=== PATIENT | female | born 1930 | race Caucasian/White ===

== ENCOUNTER 2019-07-04 14:21 | Inpatient (IN) | payer MEDICARE ==
[~2019-07-04] VITALS: Ht 154.9 cm; Wt 81.7 kg
[2019-07-04] VITALS (7 sets, daily range): BP systolic 104–214; BP diastolic 53–115
[~2019-07-04 14:21] MED LIST: CIPROFLOXACIN250 M2 PO; DILTIAZEM PO; DIOVAN320 MG PO; LASIX 20 MG TAB20 MG PO; PLAVIX 75 MG TA75 MG PO; STOOL SOFTENER100 MG PO; SYNTHROID125 MC1 PO; VICODIN ES PO; [UNRECOGNIZED DRUG - OTHER] PO
[2019-07-04 14:58] LABS: HEMOGLOBIN 15.4 gm/dL (12.0-15.0); MCH 30.1 pg (26.0-34.0); MCHC 33.4 g/dL (28.0-37.0); MCV 89.9 fL (80.0-100.0); MPV 8.8 fl. (7.2-11.1); NUCLEATED RBCS 0 /100WBC; PLATELET COUNT* 311 thou/uL (150-400); RBC 5.11 mil/uL (4.20-5.00); RDW-CV 13.9 % (10.5-14.5); WBC 29.7 thou/uL (4.0-11.0)
[2019-07-04 15:07] LABS: CALCIUM 9.3 mg/dL (8.5-10.1); CREATININE 1.1 mg/dL (0.6-1.3); POTASSIUM 3.8 mmol/L (3.5-5.1)
[2019-07-04 15:08] LABS: APTT 23.2 Seconds (25.0-31.3)
[2019-07-04 15:22] LABS: ALBUMIN 4.1 g/dL (3.4-5.0); MAGNESIUM 2.4 mg/dL (1.8-2.4); TOTAL BILIRUBIN 0.5 mg/dL (<0.1-1.0); TOTAL PROTEIN 7.4 g/dL (6.4-8.2)
[2019-07-04 15:41] LABS: ABSOLUTE BASOPHILS 0.3 thou/uL (0.0-0.2); ABSOLUTE EOSINOPHILS 0.6 thou/uL (0.0-0.7); ABSOLUTE LYMPHOCYTES 21.1 thou/uL (0.8-5.3); ABSOLUTE MONOCYTES 1.5 thou/uL (0.0-1.2); ABSOLUTE NEUTROPHILS 6.2 thou/uL (1.6-8.1); ATYPICAL LYMPHS 24 %; PLATELET ESTIMATE ADEQUATE
[2019-07-05] VITALS (23 sets, daily range): BP systolic 108–134; BP diastolic 45–64
[2019-07-05 04:36] LABS: HEMATOCRIT 35.9 % (37.0-47.0); MCH 30.7 pg (26.0-34.0); MCHC 34.5 g/dL (28.0-37.0); MCV 88.9 fL (80.0-100.0); MPV 8.9 fl. (7.2-11.1); RBC 4.04 mil/uL (4.20-5.00); RDW-CV 13.7 % (10.5-14.5)
[2019-07-05 04:42] LABS: HEMOGLOBIN 12.4 gm/dL (12.0-15.0); WBC 11.4 thou/uL (4.0-11.0)
[2019-07-05 04:49] LABS: ALBUMIN 2.9 g/dL (3.4-5.0); CALCIUM 8.5 mg/dL (8.5-10.1); CREATININE 1.1 mg/dL (0.6-1.3); MAGNESIUM 2.3 mg/dL (1.8-2.4); POTASSIUM 3.3 mmol/L (3.5-5.1); TOTAL BILIRUBIN 0.6 mg/dL (<0.1-1.0); TOTAL PROTEIN 5.4 g/dL (6.4-8.2)
[2019-07-05 04:57] LABS: BE 4.8 mmol/L (-2 to +3); PCO2 38.1 mmHg (35.0-45.0); PO2 96.3 mmHg (75.0-100.0); pH 7.489 (7.340-7.450)
[2019-07-05 05:00] LABS: TROPONIN-I LEVEL 6.02 ng/mL (<0.06)
--- NOTE | 2019-07-05 14:45 | EKG ---
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 : 1930 Requested By: Erasmo Wells Order Number: [id number] MD: Ismael Manley Measurements Intervals [place] Rate: 133 P: 72 MN: 154 QRS: -1 QRSD: 90 T: 37 QT: 287 QTc: 427 Interpretive Statements Sinus tachycardia Anterior infarct, old ST depression, consider ischemia Baseline wander in lead(s) II,III,aVL,aVF,V6 Compared to ECG 12/30/2009 10:02:10 Myocardial infarct finding now present ST (T wave) deviation now present Sinus rhythm no longer present Incomplete right bundle-branch block no longer present Electronically Signed On 07-05-2019 14:43:40 CDT by Ismael Manley [email or web address] <ELECTRONICALLY SIGNED> By: Ismael Manley MD, [facility] 07/05/19 1443 1430 1430 Ismael Manley MD, [facility] /EPI
[2019-07-06] VITALS (36 sets, daily range): BP systolic 93–134; BP diastolic 45–63
[2019-07-06 05:30] LABS: HEMATOCRIT 34.8 % (37.0-47.0); HEMOGLOBIN 11.9 gm/dL (12.0-15.0); MCH 30.4 pg (26.0-34.0); MCHC 34.1 g/dL (28.0-37.0); MCV 89.2 fL (80.0-100.0); MPV 8.8 fl. (7.2-11.1); RBC 3.9 mil/uL (4.20-5.00); RDW-CV 13.8 % (10.5-14.5); WBC 9.9 thou/uL (4.0-11.0)
[2019-07-06 05:44] LABS: ALBUMIN 2.6 g/dL (3.4-5.0); ALKALINE PHOSPHATASE 102 U/L (46-116); ANION GAP 5 mmol/L (7-16); BUN 15 mg/dL (7-18); CALCIUM 8.5 mg/dL (8.5-10.1); CHLORIDE 105 mmol/L (98-107); CHOLESTEROL 171 mg/dL (<200); CO2 29 mmol/L (21-32); CREATININE 1.1 mg/dL (0.6-1.3); GLUCOSE 95 mg/dL (70-99); HDL CHOLESTEROL 56 mg/dL (>40); LDL CHOLESTEROL 101 mg/dL (<100); MAGNESIUM 2.1 mg/dL (1.8-2.4); SERUM ASSESSMENT CLEAR; SGOT 31 U/L (15-37); SGPT 14 U/L (30-65); SODIUM 139 mmol/L (136-145); TC:HDL 3.1 Ratio (Not establshd); TOTAL BILIRUBIN 0.6 mg/dL (<0.1-1.0); TOTAL PROTEIN 5.2 g/dL (6.4-8.2); TRIGLYCERIDE 72 mg/dL (<150); VLDL 14 mg/dL (<40)
--- NOTE | 2019-07-06 10:45 | EKG ---
[place] [address] ELECTROCARDIOGRAM REPORT Name: KATELIN VENEGAS Room: [address] ADM IN M.R.#: [id number] Admission: 07/04/19 Attend Phys: Jose Carlos Becerra Discharge: Date of : [birth year] Date of Service: 07/06/19 0303 Report #: [id number] THIS REPORT FOR: //name// [facility] Test Date: 2019-07-06 Test Time: 03:03:38 Pat Name: KATELIN VENEGAS Department: Room: [address] Gender: F [employer] Former: RB : 1930 Requested By: Jose Carlos Becerra Order Number: [id number] Reading MD: Rj Eugene Measurements Intervals [place] Rate: 80 P: 51 ND: 157 QRS: -1 QRSD: 82 T: 150 QT: 387 QTc: 447 Interpretive Statements Sinus rhythm Probable left atrial enlargement Probable anteroseptal infarct, recent Lateral leads are also involved Baseline wander in lead(s) V5,V6 Compared to ECG 07/04/2019 14:30:44 Sinus tachycardia no longer present Myocardial infarct finding still present Electronically Signed On 07-06-2019 10:43:46 CDT by Rj Eugene [email or web address] <ELECTRONICALLY SIGNED> By: Rj Eugene MD, [facility] 07/06/19 1043 2 2 Rj Eugene MD, [facility] /EPI
[2019-07-06 12:09] LABS: PCO2 VENOUS 38.2 mmHg (41.0-51.0); PO2 VENOUS 33.4 mmHg (35.0-45.0)
[2019-07-06 12:15] LABS: pH 7.478 (7.340-7.450)
[2019-07-06 12:16] LABS: BE 2.2 mmol/L (-2 to +3)
[2019-07-06 12:31] LABS: PO2 54.9 mmHg (75.0-100.0)
--- NOTE | 2019-07-06 14:58 | EKG ---
[place] [address] ELECTROCARDIOGRAM REPORT Name: KATELIN VENEGAS Room: [address] ADM IN M.R.#: [id number] Admission: 07/04/19 Attend Phys: Jose Carlos Becerra Discharge: Date of : [birth year] Date of Service: 07/06/19 1311 Report #: [id number] THIS REPORT FOR: //name// 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1930 Requested By: Rj Eugene Order Number: [id number] Reading MD: Rj Eugene Measurements Intervals [place] Rate: 85 P: 60 NC: 151 QRS: 17 QRSD: 121 T: 138 QT: 386 QTc: 459 Interpretive Statements Sinus rhythm Anterior Q waves, possibly due to old anterior myocardia infarction LVH w/ repol abnormalities, possible ischemia ST elevation, consider old anterior infarction Compared to ECG 07/06/2019 03:03:38 Left ventricular hypertrophy now present Myocardial infarct finding still present Electronically Signed On 07-06-2019 14:56:37 CDT by Rj Eugene [email or web address] <ELECTRONICALLY SIGNED> By: Rj Eugene MD, [facility] 07/06/19 1456 1311 1311 Rj Eugene MD, [facility] /EPI
--- NOTE | 2019-07-06 16:22 | CARD ---
[address] [address] CARDIAC CATH REPORT Name: KATELIN VENEGAS Abdirahman Room: [address] IN [facility]#: [id number] Admission: 07/04/19 Attend Phys: Melquiades Yancey Discharge: Date of : [birth year] Report #: [id number] THIS REPORT FOR: //name// cc: HANNA - No family physician/PCP FAM - No family physician/PCP ~ APPROVED REPORT Study performed: 07/06/2019 10:33:16 Patient Details Patient Status: In-Patient Room #: The patient is a 88 year-old female Event Personnel Dickson Ashby RTR Monitor, Hasmukh Peralta RN RN, Viola Galloway RN RN, Bell Riley RTR AndreaubValorie David Veneer Glue Spreader Procedures Performed right and left heart catheterizaion and stent placement in the rcaRight and Left Heart Cath w/or w/o Coronarie [id number] [facility] Place w/wo Plasty Single RCA [id number] Hemostasis w/ Angioseal Hemostasis with Manual pressure Indication Abnormal ECG, Non-STEMI , Dyspnea, Valvular heart disease Risk Factors Coronary Artery Disease Previous Procedures/Diagnoses Previous PCI Admission/Lab Medications/Medications given during procedure Glycoprotein IllbIlla Inhibitors, Heparin Unfract., Midazolam (Versed) IV 1 mg, Heparin IA 6000 units, Aggrastat Unknown 8.4 ml, Fentanyl IV 25 mcg, Plavix PO 600 mg Procedure Narrative The patient was brought electively to the Cardiac Catheterization Laboratory and was prepped and draped in a sterile manner. The right femoral was infiltrated with 2% Lidocaine subcutaneous anesthesia. A Right Heart Catheterization was performed with a 7 Fr. [place] catheter and pressure were recorded. Cardiac outputs were obtained by the Thermal Dilution method. A 7Fr X 11cm [place] [address] CARDIAC CATH REPORT Name: KATELIN VENEGAS Room: [address] IN [facility].#: [id number] Admission: 07/04/19 Attend Phys: Melquiades Yancey Discharge: Date of : [birth year] Report #: [id number] into the right femoral artery and vein. Coronary angiography was performed using coronary diagnostic catheters. The right coronary system was accessed and visualized with a Diagnostic JR4 6Fr catheter. The left coronary system was accessed and visualized with a Diagnostic JL4 6Fr catheter. The left ventricle was accessed and visualized with a Diagnostic Angled Pigtail 6Fr catheter. Left ventricular/Aortic Valve gradient assessed via joel catheter with simultaneous pressures. Left ventriculogram was performed in GARDNER projection. Closure device was deployed with a Fr AngiosealAngioseal 6Fr. The patient tolerated the procedure well and there were no complications associated with the procedure. There was no hematoma. 7 kinyarwanda sheath placed in the right femoral vein. Hemostasis achieved at the end of the procedure by bessy pressure. Intraoperative Conscious Sedation Sedation start time: 1137 Case end Time: 1258 Fentanyl 50 mcg Versed 2 mg Fluoro Time: 11.7 minutes Dose: DAP 045756 cGycm2 1972.46 mGy Contrast Type and Amount: Visipaque 250 ml Coronary Angiography The patient's coronary anatomy is co- dominant. Diagnostic Cath Left Main 0% stenosis LAD ostial 40% stenosis noted prior to a stent in the proximal lad that had 0% stenosis. 60% stenosis noted in the mid lad after the first diagonal branch, and stent in the mid lad after the second diagonal branch had 0% stenosis. Distal lad had a 90% stenosis before a 3rd stent that had 0% stenosis. Circumflex 30% mid stenosis noted Right Coronary Stent in the mid rca had a 90% stenosis at the proximal edge of the stent, and a 99% stenosis noted at the distal edge of the stent Left Ventriculography The left ventricular ejection fraction is estimated to be 30-35%. Left ventricular wall motion abnormalities are present. There is no mitral insufficiency. Apical akinsis noted Hemodynamics The right atrial mean pressure is 4 mmHg. The right ventricular pressure is 55/8 mmHg. The pulmonary artery pressure is 54/30 [place] [address] CARDIAC CATH REPORT Name: YONI VENEGASDiana Gary Room: [address] IN [facility]#: [id number] Admission: 07/04/19 Attend Phys: Melquiades Yancey Discharge: Date of : [birth year] Report #: [id number] with a mean of mmHg. The mean pulmonary capillary wedge pressure is 15 mmHg. The aortic pressure is 100/60 mmHg with a mean of mmHg. The left ventricular pressure is 200/18 mmHg with a mean of mmHg. The left ventricular end diastolic pressure is 18 mmHg. Pullback from the left ventricle to the aorta revealed a 100 mm gradient across the aortic valve. Arterial saturation is 91 %. The cardiac output using thermo method is 4.77 L/min. The peak gradient across the aortic valve is 100 mmHg. The aortic valve area is 0.4-0.5 cm2. PCI Technique Lesion Anticoagulation was achieved with Heparin. bolud of iv aggrastat given Percutaneous coronary intervention was performed on the mid right coronary arterydistal right coronary artery. The lesion stenosis prior to intervention was 99% with TAE 3 flow. A 6F JR 4.0 Guide Catheter was used to engage the Right ostium. A BMW 190cm Interventional Guidewire was used to cross the lesion. BALLOON DILATION A Balloon catheter Mini Trek RX 2.0 X 8 was inserted and inflated up to 10.00atm for 17seconds. Repeat angiography revealed the following post-dilatation results: 70% stenosis. Additional Inflation: 12.00atm for 11seconds. Additional Inflation: 14.00atm for 18seconds. STENT DEPLOYMENT A drug-eluting stent Syd RX Stent 2.67F95dj was inserted and inflated up to 14.00atm for 10seconds. Repeat angiography revealed the following post-stent deployment results: 30% stenosis. Additional Inflation: 12.00atm for 13seconds. Remi wire was needed to advance the stent using a BMW wire. A second drug eluting stent which was 2.5 x 34 mm was used proximal to the first stent with minimal overlap between this stent and the more distal stent. POST STENT DEPLOYMENT BALLOON DILATION A Balloon catheter 2.5 x 34 mm balloon from the 2nd stent was inserted and inflated up to 20atm for 15seconds. Repeat angiography revealed the following post-dilatation results: 0% stenosis. Final angiography reveals 0 % stenosis with TAE 3 flow. PCI Technique Lesion 2 Percutaneous Coronary Intervention was performed on the mid right coronary artery. A 6F JR 4.0 Guide Catheter was used to engage the Right ostium. A BMW 190cm Interventional Guidewire was used to cross the lesion. Stent Deployment [facility] [address] [place] [address] CARDIAC CATH REPORT Name: KATELIN VENEGAS Room: [address] ADM IN .R.#: [id number] Admission: 07/04/19 Attend Phys: Melquiades Yancey Discharge: Date of : [birth year] Report #: [id number] A drug-eluting stent Syd RX Stent 2.5X34mm was inserted and inflated up to 10.00atm for 13seconds. Additional Inflation: 10.00atm for 9seconds. Additional Inflation: 14.00atm for 16seconds. Conclusion 1. No significant stenosis noted of stents in the proximal, mid, and distal lad, although there was a 90% stenosis noted in the distal lad between the stents in the mid lad and distal lad 2. Stent in the mid rca had a 90% stenosis of the proximal edge of the stent, and a 99% stenosis noted in the distal edge of the stent 3. LVEF 30-35% 4. Severe aortic stenosis with a calculated valve area of 0.4 cm squared 5. successful placment of 2 drug eluting stents in the mid rca Recommendations Recommend referral for TAVR Medications Administered Clopidogrel <ELECTRONICALLY SIGNED> By: Rj Eugene MD, [facility] 07/06/19 1620 162 162Dasaji Eugene MD, FACC /INF
[2019-07-07] VITALS (35 sets, daily range): BP systolic 89–138; BP diastolic 47–87
[2019-07-07 04:28] LABS: HEMATOCRIT 36.7 % (37.0-47.0); HEMOGLOBIN 12.6 gm/dL (12.0-15.0); MCH 30.7 pg (26.0-34.0); MCHC 34.4 g/dL (28.0-37.0); MCV 89.3 fL (80.0-100.0); MPV 8.6 fl. (7.2-11.1); RBC 4.11 mil/uL (4.20-5.00); RDW-CV 13.8 % (10.5-14.5)
[2019-07-07 04:43] LABS: PREALBUMIN 14.9 mg/dL (18.0-35.7)
[2019-07-07 04:56] LABS: ALBUMIN 2.6 g/dL (3.4-5.0); CALCIUM 8.6 mg/dL (8.5-10.1); CREATININE 0.9 mg/dL (0.6-1.3); POTASSIUM 4.1 mmol/L (3.5-5.1); TOTAL BILIRUBIN 0.8 mg/dL (<0.1-1.0); TOTAL PROTEIN 5.3 g/dL (6.4-8.2)
--- NOTE | 2019-07-07 08:07 | CON ---
[address] [address] CONSULTATION Name: KATELIN VENEGAS Room: [address] IN M.R.#: [id number] Admission: 07/04/19 Attend Phys: Melquiades Yancey Discharge: Date of : [birth year] Report #: [id number] THIS REPORT FOR: //name// cc: HANNA Arrieta family physician/PCP HANNA Arrieta family physician/PCP ~ THIS REPORT FOR: //name// CC: [facility] physician/PCP Jose Carlos Becerra DATE OF SERVICE: 07/06/2019 INFECTIOUS DISEASE CONSULTATION ATTENDING PHYSICIAN: Raul Hancock M.D. REASON FOR EVALUATION: Suspected pneumonitis, perhaps hypersensitivity reaction with a pruritic eruption due to cephalosporins. The patient has a distant history of PENICILLIN ALLERGY. HISTORY OF PRESENT ILLNESS: Chart reviewed, patient examined. This is an 88-year-old with known history of critical aortic stenosis. Apparently had rheumatic fever as a child, presented with acute chest pain and shortness of breath. She did note apparently to have a non-ST elevation myocardial infarction, has been undergoing treatment thus far, scheduled cardiac catheterization. Due to concern about some low-grade temperature elevations, imaging is suggested, infiltrates, which could be multifactorial. She was started on empiric therapy with cefepime, developed a pruritic-type eruption. She has subsequently been switched to levofloxacin without apparent issue. Question, she is not aware of fevers prior to coming in. She did have low-grade temperature elevation as high as 100.0 yesterday evening. She did admit to cough that was only actually on her way into the hospital. She is not aware of any history of pneumonitis. She is generally lucid. She denies significant pulmonary or gastrointestinal related complaints at this point, although she is on supplemental oxygen at 4 L per nasal cannula. She is currently afebrile. ALLERGIES: LISTED TO PENICILLINS, LIKELY CEPHALOSPORINS, NONSTEROIDALS. CURRENT MEDICATIONS: Include aspirin, Levaquin, metoprolol, levothyroxine, labetalol as needed, furosemide, and nitroglycerin. PAST MEDICAL HISTORY: As described above, critical aortic stenosis, history of rheumatic fever, has known atherosclerotic coronary artery disease with previous stenting, recent non-ST elevation acute myocardial infarction, history of hypertension, arthritis, fibromyalgia, previous cholecystectomy, hysterectomy, left total hip arthroplasty, right total knee arthroplasty, [place] [address] CONSULTATION Name: KATELIN VENEGAS Abdirahman Room: [address]#: [id number] Admission: 07/04/19 Attend Phys: Melquiades Yancey Discharge: Date of : [birth year] Report #: [id number] cataracts. SOCIAL HISTORY: Nonsmoker, no ethanol, no illicit drug use. FAMILY HISTORY: Noncontributory. REVIEW OF SYSTEMS: Otherwise, unremarkable 10-point review of systems with exception of the above. PHYSICAL EXAMINATION: GENERAL: She is sitting in the chair. She is alert, cooperative. She is in lpwq-fq-ymtgebas distress. She is lucid, appears mildly undernourished. VITAL SIGNS: Temperature 99, pulse 85, respirations 23, and blood pressure is 126/53. SKIN: Warm, dry, no rashes. HEENT: Normocephalic. Extraocular muscles intact. NECK: Supple. LUNGS: Diminished breath sounds. She does have some rales at the bases. HEART: Regular, has got a prominent systolic murmur. ABDOMEN: Soft, nontender, nondistended. BACK: Described as itchy, although she does not have evidence of any urticaria at this point, although had been on systemic antihistamines. GENITOURINARY AND RECTAL: Deferred. LABORATORY DATA: Blood cultures sterile thus far. Electrolytes: Sodium 139, potassium 4.0, chloride 105, bicarbonate is 29, anion gap of 5, BUN and creatinine 15 and 1.1, and glucose of 95. LFTs unremarkable. Albumin of 2.6. Total protein of 5.2. CBC: White count of 9.9, H and H 11.9 and 34.8, platelets of 166. Chest x-ray from admission: Normal heart size and vascularity appears normal, diffuse bilateral pulmonary opacities. ASSESSMENT AND PLAN: Pneumonitis may well be multifactorial. She has actually had 48 hours of antibiotics. She has been given a dose of Levaquin, which we gave her in 24 hours. We will see how she does over the course of this post-cardiac catheterization. Repeat chest x-ray perhaps in the morning. Continue efforts to wean off support as allowed. At this point, I am not hopeful to have any samples, sputum culture, could send a urinary antigen. We will discuss case with Dr. Hancock. <ELECTRONICALLY SIGNED> By: Lion Hernandez MD 07/07/19 0807 1059 [id number] Hernandez MD /nt
--- NOTE | 2019-07-07 12:56 | CON ---
[address] [address] CONSULTATION Name: KATELIN VENEGAS Room: [address] IN M.R.#: [id number] Admission: 07/04/19 Attend Phys: Melquiades Yancey Discharge: Date of : [birth year] Report #: [id number] THIS REPORT FOR: //name// cc: HANNA Arrieta family physician/PCP HANNA - No family physician/PCP ~ THIS REPORT FOR: //name// CC: [facility] physician/PCP MERI Becerra INDICATION: Non-ST elevation myocardial infarction and acute heart failure. HISTORY OF PRESENT ILLNESS: The patient is a very pleasant and fairly functional 88-year-old white female with history of aortic stenosis. The patient was admitted to the hospital with acute chest pain and shortness of breath. Initial EKG showed sinus tachycardia without significant ST segment changes. The patient's troponins have trended upwards to 6.0 presently consistent with non-ST elevation myocardial infarction. The patient's pain resolved with treatment of her heart failure and nitroglycerin. The patient was transiently on BiPAP and is now on O2 per nasal cannula. She presently is stable. She is no longer having chest pain. According to her history, she has aortic stenosis and has been suggested to have transcutaneous aortic valve replacement. She denies any prior history of myocardial infarction. She has had increasing lower extremity swelling over the past several days. She has dyspnea on exertion, but denies orthopnea. She is without other cardiac complaint. PAST MEDICAL HISTORY: 1. Aortic stenosis. 2. Coronary artery disease with previous percutaneous coronary intervention. 3. Hypertension. 4. Arthritis. 5. Fibromyalgia. PAST SURGICAL HISTORY: Right knee surgery, left hip surgery, hysterectomy, cholecystectomy, foot surgery, bilateral cataract surgery. FAMILY HISTORY: Noncontributory. SOCIAL HISTORY: The patient is a nonsmoker. She does not drink alcohol. ALLERGIES: NONSTEROIDALS, PENICILLIN. HOME MEDICATIONS: Ciprofloxacin 250 mg b.i.d., Plavix 75 mg daily, Colace 100 mg b.i.d., furosemide 20 mg p.o. daily, Synthroid 125 mcg daily, Diovan 320 [place] [address] CONSULTATION Name: KATELIN VENEGAS Room: [address]#: [id number] Admission: 07/04/19 Attend Phys: Melquiades Yancey Discharge: Date of : [birth year] Report #: [id number], diltiazem 240 mg daily, potassium chloride 10 mEq daily, Vicodin-ES 1-2 every 6 hours p.r.n. PHYSICAL EXAMINATION: VITAL SIGNS: Stable. Blood pressure 118/57, pulse 79 and regular. GENERAL: This is a very pleasant elderly female who is in no distress. Mood and affect appropriate. HEENT: The patient is wearing glasses. Extraocular muscles intact. Mucous membranes are moist. NECK: Shows no jugular venous distention. There is a cardiac murmur that radiates to carotids bilaterally. CHEST: Reveals clear lung musa. CARDIOVASCULAR: Reveals a regular rhythm with grade 3/6 systolic ejection murmur heard throughout the precordium. ABDOMEN: Reveals normal bowel sounds. The abdomen is soft, nontender. EXTREMITIES: Shows 1+ edema to the mid tibias bilaterally. SKIN: Dry. IMPRESSION AND RECOMMENDATIONS: 1. Severe aortic stenosis. We will obtain echocardiogram. We will contact [facility]'s TAVR program for consideration of transcutaneous aortic valve replacement. 2. Non-ST elevation myocardial infarction. Consider invasive evaluation. I have asked for outside records. Continue heparin drip at this time. SHE IS ALLERGIC TO ASPIRIN. Continue Plavix. 3. Hypertension. Blood pressure adequately controlled at present. 4. Possible dyslipidemia. Fasting lipid profile has been ordered. 5. Acute on chronic heart failure. Echocardiogram ordered. She is responding nicely to IV Lasix at present. Check labs in a.m. <ELECTRONICALLY SIGNED> By: Ismael Manley MD, FACC 07/07/19 1256 1325 [id number] Manley MD, FACC /nt
--- NOTE | 2019-07-07 14:37 | EKG ---
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1930 Requested By: Rj Eugene Order Number: [id number] Reading MD: Rj Eugene Measurements Intervals [place] Rate: 91 P: 42 NC: 159 QRS: -8 QRSD: 86 T: 145 QT: 329 QTc: 405 Interpretive Statements Sinus rhythm Inferior infarct, old Probable anteroseptal infarct, recent Compared to ECG 07/06/2019 13:11:38 Myocardial infarct finding still present Electronically Signed On 07-07-2019 14:36:09 CDT by Rj Eugene [email or web address] <ELECTRONICALLY SIGNED> By: Rj Eugene MD, [facility] 07/07/19 1436 9 9 Rj Eugene MD, [facility] /EPI
[2019-07-08] VITALS: BP 125/64
[2019-07-08 04:00] VITALS: BP 114/53
[2019-07-08 05:33] LABS: ABSOLUTE EOSINOPHILS 0.2 thou/uL (0.0-0.7); ABSOLUTE LYMPHOCYTES 3.9 thou/uL (0.8-5.3); ABSOLUTE MONOCYTES 0.4 thou/uL (0.0-1.2); ABSOLUTE NEUTROPHILS 3.2 thou/uL (1.6-8.1); BASOPHILS 0.3 %; EOSINOPHILS 2.9 %; HEMATOCRIT 33.1 % (37.0-47.0); HEMOGLOBIN 11.4 gm/dL (12.0-15.0); LYMPHOCYTES 50.4 %; MCH 30.6 pg (26.0-34.0); MCHC 34.4 g/dL (28.0-37.0); MCV 88.7 fL (80.0-100.0); MONOCYTES 5.3 %; MPV 8.5 fl. (7.2-11.1); NUCLEATED RBCS 0 /100WBC; PLATELET COUNT* 177 thou/uL (150-400); POLYS 41.1 %; RBC 3.73 mil/uL (4.20-5.00); RDW-CV 13.6 % (10.5-14.5); WBC 7.7 thou/uL (4.0-11.0)
[2019-07-08 05:44] LABS: CALCIUM 8.5 mg/dL (8.5-10.1); CREATININE 0.7 mg/dL (0.6-1.3); POTASSIUM 3.9 mmol/L (3.5-5.1)
[2019-07-08 08:00] VITALS: BP 121/69
[2019-07-08 15:27] VITALS: BP 119/64
[2019-07-08 16:00] VITALS: BP 105/59
[2019-07-08 20:00] VITALS: BP 113/65
[2019-07-09] VITALS (7 sets, daily range): BP systolic 90–125; BP diastolic 50–59
[2019-07-09 04:41] LABS: ABSOLUTE EOSINOPHILS 0.3 thou/uL (0.0-0.7); ABSOLUTE MONOCYTES 0.5 thou/uL (0.0-1.2); ABSOLUTE NEUTROPHILS 3.3 thou/uL (1.6-8.1); BASOPHILS 0.4 %; EOSINOPHILS 3.3 %; HEMATOCRIT 32.4 % (37.0-47.0); HEMOGLOBIN 11.4 gm/dL (12.0-15.0); LYMPHOCYTES 49.8 %; MCHC 35.2 g/dL (28.0-37.0); MCV 88.2 fL (80.0-100.0); MONOCYTES 5.6 %; MPV 8.8 fl. (7.2-11.1); NUCLEATED RBCS 0 /100WBC; PLATELET COUNT* 187 thou/uL (150-400); POLYS 40.9 %; RBC 3.67 mil/uL (4.20-5.00); RDW-CV 13.7 % (10.5-14.5); WBC 8.1 thou/uL (4.0-11.0)
[2019-07-09 05:07] LABS: CALCIUM 8.5 mg/dL (8.5-10.1); CREATININE 0.8 mg/dL (0.6-1.3); POTASSIUM 3.7 mmol/L (3.5-5.1)
[2019-07-10] VITALS (9 sets, daily range): BP systolic 90–132; BP diastolic 45–72
[2019-07-11 04:06] VITALS: BP 122/64
[2019-07-11 08:00] VITALS: BP 133/71
[2019-07-11 10:03] VITALS: BP 90/50
[2019-07-11 16:00] VITALS: BP 123/52
[2019-07-11 20:00] VITALS: BP 99/48
[2019-07-12 00:12] VITALS: BP 103/44
[2019-07-12 04:40] VITALS: BP 104/50
[2019-07-12 08:00] VITALS: BP 129/81
[2019-07-12] MEDS ORDERED: ASA81BEC PO (10:32)
[2019-07-12] MEDS ORDERED: TOPROL XL25 MG PO (10:38)
[2019-07-12] MEDS ORDERED: TYLENOL EXTRA500 MG PO (10:54)
[2019-07-12] MEDS ORDERED: NITROSTAT0.4 MG SUBLING (11:01)
[2019-07-13 08:52] VITALS: BP 90/50
== END 2019-07-12 12:10 | disposition home health service (06) | DRG 853 ==
LOC: M.ERS 14:21 → M.ICU 15:49 → M.TBA-ER 15:49 → M.ICU 17:00 → M.2W 07-07 18:21
PROVIDERS: Emergency Medicine Emergency Medical Services; Internal Medicine; Internal Medicine Cardiovascular Disease; ADMIT Internal Medicine
PROC: 5A09357 Assistance with Respiratory Ventilation, Less than 24 Consecutive Hours, Continuous Positive Airway Pressure (ICD-10-PCS; principal; 2019-07-04)
PROC: 4A023N7 Measurement of Cardiac Sampling and Pressure, Left Heart, Percutaneous Approach (ICD-10-PCS; 2019-07-06)
PROC: 027035Z Dilation of Coronary Artery, One Artery with Two Drug-eluting Intraluminal Devices, Percutaneous Approach (ICD-10-PCS; 2019-07-06)
PROC: B211YZZ Fluoroscopy of Multiple Coronary Arteries using Other Contrast (ICD-10-PCS; 2019-07-06)
PROC: B215YZZ Fluoroscopy of Left Heart using Other Contrast (ICD-10-PCS; 2019-07-06)
DX: A41.9 Sepsis, unspecified organism (principal); I21.4 Non-ST elevation (NSTEMI) myocardial infarction; I50.23 Acute on chronic systolic (congestive) heart failure; J96.01 Acute respiratory failure with hypoxia; J15.9 Unspecified bacterial pneumonia; J91.8 Pleural effusion in other conditions classified elsewhere; I43 Cardiomyopathy in diseases classified elsewhere; E03.9 Hypothyroidism, unspecified; Z96.651 Presence of right artificial knee joint; I25.10 Atherosclerotic heart disease of native coronary artery without angina pectoris; M79.7 Fibromyalgia; I35.0 Nonrheumatic aortic (valve) stenosis; M19.90 Unspecified osteoarthritis, unspecified site; I11.0 Hypertensive heart disease with heart failure; I25.2 Old myocardial infarction; Z79.01 Long term (current) use of anticoagulants; Z88.0 Allergy status to penicillin; Z95.5 Presence of coronary angioplasty implant and graft; Z79.899 Other long term (current) drug therapy; Z90.710 Acquired absence of both cervix and uterus; Z90.49 Acquired absence of other specified parts of digestive tract; Z98.42 Cataract extraction status, left eye; Z98.41 Cataract extraction status, right eye; Z88.8 Allergy status to other drugs, medicaments and biological substances